=== PATIENT | male | born 1985 | race African-American/Black ===

== ENCOUNTER 2022-07-28 09:53 | Outpatient (CLI) | payer OTHER | END 2022-07-28 13:25 | disposition home or self-care (01) | LOC: LAB 09:53 | PROVIDERS: ATTEND Obstetrics & Gynecology | DX: Z20.828 Contact with and (suspected) exposure to other viral communicable diseases (principal); Z20.818 Contact with and (suspected) exposure to other bacterial communicable diseases ==